=== PATIENT | male | born 1945 | race American Indian/Alaskan Native ===

== ENCOUNTER 2020-07-10 22:38 | Emergency (ER) | payer MEDICARE, MEDICAID ==
[2020-07-10 22:56] VITALS: BP 141/78
--- NOTE | 2020-07-10 23:19 | Emergency Department Report ---
ED General Adult HPI - General Chief complaint: Medical Clearance Stated complaint: OFF PSYCH MEDS PUI?: No Time Seen by Provider: 07/10/20 23:14 Source: patient Mode of arrival: Ambulatory Limitations: No Limitations - History of Present Illness Initial comments: Patient is a 74-year-old male who presents emergency room with complaints of wanting a medication change. Patient states he is taking psychiatric medications and he does not like how it makes him feel. Patient states he stopped taking them today. Patient states he took his morning dose but does not want to take anymore. Patient denies suicidal homicidal ideations. Patient denies audiovisual hallucinations. Patient states he is just does not want to take this medication. Patient denies chest pain or shortness of breath. Patient denies any physical complaints. Patient brought his medications in. Patient is taking Namenda, Seroquel and Aricept. Patient also takes hydrochlorothiazide for his blood pressure. Patient denies recent travel. Patient denies recent international travel. Patient denies exposure to the novel coronavirus. Patient denies sick contacts. Patient denies fever and chills. Patient denies cough. Patient denies diarrhea. Patient denies coming in contact with anybody with symptoms of the novel coronavirus. -: Sudden ED Review of Systems ROS: Stated complaint: OFF PSYCH MEDS Other details as noted in HPI Constitutional: denies: chills, fever Eyes: denies: eye pain, eye discharge, vision change ENT: denies: ear pain, throat pain Respiratory: denies: cough, shortness of breath, wheezing Cardiovascular: denies: chest pain, palpitations Endocrine: no symptoms reported Gastrointestinal: denies: abdominal pain, nausea, diarrhea Genitourinary: denies: urgency, dysuria Musculoskeletal: denies: back pain, joint swelling, arthralgia Skin: denies: rash, lesions Neurological: denies: headache, weakness, paresthesias Psychiatric: denies: anxiety, depression Hematological/Lymphatic: denies: easy bleeding, easy bruising ED Past Medical Hx - Past Medical History Previous Medical History?: Yes Hx Hypertension: Yes Hx Psychiatric Treatment: Yes - Surgical History Past Surgical History?: No - Family History Family history: no significant - Social History Smoking Status: Never Smoker Substance Use Type: None ED Physical Exam - General Limitations: No Limitations General appearance: alert, in no apparent distress - Head Head exam: Present: atraumatic, normocephalic - Eye Eye exam: Present: normal appearance - ENT ENT exam: Present: mucous membranes moist - Neck Neck exam: Present: normal inspection - Respiratory Respiratory exam: Present: normal lung sounds bilaterally. Absent: respiratory distress, wheezes, rales - Cardiovascular Cardiovascular Exam: Present: regular rate, normal rhythm. Absent: systolic murmur, diastolic murmur, rubs, gallop - GI/Abdominal GI/Abdominal exam: Present: soft, normal bowel sounds. Absent: distended, tenderness, guarding - Rectal Rectal exam: Present: deferred - Extremities Exam Extremities exam: Present: normal inspection - Back Exam Back exam: Present: normal inspection - Neurological Exam Neurological exam: Present: alert, oriented X3 - Psychiatric Psychiatric exam: Present: normal affect, normal mood - Skin Skin exam: Present: warm, dry, intact, normal color. Absent: rash ED Course Vital Signs 07/10/20 22:54 Temperature 98.3 F Pulse Rate 94 H Respiratory 16 Rate Blood Pressure 141/78 O2 Sat by Pulse 99 Oximetry - Reevaluation(s) Reevaluation #1: I explained to the patient that this is not an emergency medical condition. Patient had a medical clearance exam. Patient is medically cleared. I instructed the patient to follow-up with his primary care. Patient is stable for discharge. I discussed all clinical findings with patient. I discussed plan of care with patient. Patient agrees with plan of care. Patient is stable for discharge. Patient will be discharged home. Patient given discharge instructions. Patient voiced understanding of discharge instructions. 07/10/20 23:20 ED Medical Decision Making - Medical Decision Making Patient is a 74-year-old male presents emergency room with complaints of wanting to have a medication change for his psychiatry medications. Patient states he does not want to take them anymore. Patient does not presents emergency room with emergency medical condition. Patient does not require further emergency medical services. Patient had a medical clearance exam and is medically cleared and will be discharged to follow-up with his primary care. Patient is stable to follow-up with his primary care tomorrow as an outpatient. - Differential Diagnosis Medication change. Dementia, schizophrenia, side effects. Critical care attestation.: If time is entered above; I have spent that time in minutes in the direct care of this critically ill patient, excluding procedure time. ED Disposition Clinical Impression: Medication side effects Schizophrenia Qualifiers: Schizophrenia type: unspecified Qualified Code(s): F20.9 - Schizophrenia, unspecified Disposition: MED SCREENING EXAM-LEFT Is pt being admited?: No Does the pt Need Aspirin: No Condition: Stable Instructions: Schizophrenia (ED) Additional Instructions: Patient to follow-up with primary care in 2 to 3 days. Patient to follow-up with psychiatrist in 2 to 3 days. Patient to rest. Patient to increase water. Patient to return to the ER if condition worsens, changes or new symptoms arise. Time of Disposition: 23:23
== END 2020-07-11 00:23 | disposition left against medical advice (07) ==
LOC: ED 22:38
DX: F20.9 Schizophrenia, unspecified (principal); Z76.0 Encounter for issue of repeat prescription; Z53.21 Procedure and treatment not carried out due to patient leaving prior to being seen by health care provider